=== PATIENT | male | born 1970 | race Caucasian/White ===

== ENCOUNTER 2021-01-30 19:25 | Emergency (ER) | payer OTHER ==
[2021-01-30 21:01] LABS: HEMOGLOBIN 14.6 gm/dl (14.0-17.5); RED BLOOD COUNT 5.01 M/UL (4.20-5.50); WHITE BLOOD COUNT 7.6 K/UL (4.5-11.0)
[2021-01-30 21:31] LABS: BUN/CREATININE RATIO 19 (0-10)
== END 2021-01-30 22:30 | disposition home or self-care (01) ==
LOC: ER1 19:25
PROVIDERS: Physician Assistant
DX: I63.9 Cerebral infarction, unspecified (principal); G83.24 Monoplegia of upper limb affecting left nondominant side; R55 Syncope and collapse; E86.0 Dehydration; R11.2 Nausea with vomiting, unspecified; M54.9 Dorsalgia, unspecified; M54.2 Cervicalgia; G89.29 Other chronic pain; Z20.822 Contact with and (suspected) exposure to COVID-19; E78.5 Hyperlipidemia, unspecified; I10 Essential (primary) hypertension; E11.9 Type 2 diabetes mellitus without complications; Z86.16 Personal history of COVID-19; R29.707 NIHSS score 7
CPT/HCPCS: 70450; 71045; 80053; 82550; 82553; 83874; 84484; 85025; 93005; 99285; G0480; J7030; U0002